=== PATIENT | male | born 1995 | race Caucasian/White ===

== ENCOUNTER 2018-06-24 01:33 | Emergency (ER) | payer SELFPAY ==
[2018-06-24 01:43] VITALS: BP 150/91; PULSE 91; RESP 17; TEMP 36.6; O2SAT 99; BMI 26.4
--- NOTE | 2018-06-24 01:48 | DI.RAD.S_ITS ---
PROCEDURE: XR CHEST 2V INDICATIONS: Shortness of breath TECHNIQUE: 2 views of the chest were acquired. COMPARISON: [facility], CHEST 2VW, 12/07/2012, 4:18 PM. FINDINGS: Surgical changes and devices: None. Lungs and pleura: No pleural effusions or pneumothorax. Lungs are clear. Mediastinum: Mediastinal contours are normal. Heart size is normal. Bones and chest wall: No suspicious bony abnormalities. Soft tissues appear unremarkable. IMPRESSION: No acute cardiopulmonary disease. Dictated by: Lisa Ambriz M.D. on 06/24/2018 at 8:56 Approved by: Lisa Ambriz M.D. on 06/24/2018 at 8:56
[2018-06-24 02:39] VITALS: BP 150/91; PULSE 72; RESP 17; TEMP 36.5; O2SAT 100
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
== END 2018-06-24 02:41 | disposition home or self-care (01) ==
PROVIDERS: Emergency Provider Emergency Medicine
DX: R07.89 Other chest pain (principal)
CPT/HCPCS: 71046; 93005; 93010; 99282; 99284

== ENCOUNTER 2019-01-24 03:58 | Emergency (ER) | payer SELFPAY ==
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
[2019-01-24 04:25] VITALS: BP 139/88; PULSE 82; RESP 14; TEMP 36.9; O2SAT 96; BMI 35.2
== END 2019-01-24 04:51 | disposition home or self-care (01) ==
PROVIDERS: Emergency Provider Emergency Medicine
DX: F41.9 Anxiety disorder, unspecified (principal); R07.9 Chest pain, unspecified
CPT/HCPCS: 93005; 99282; 99283

== ENCOUNTER 2019-02-08 23:14 | Emergency (ER) | payer SELFPAY ==
[2019-02-08 23:29] VITALS: BP 152/91; PULSE 76; RESP 15; TEMP 36.4; O2SAT 99; BMI 36.3
--- NOTE | 2019-02-09 01:33 | DI.RAD.S_ITS ---
PROCEDURE: XR CHEST 2V INDICATIONS: SOB, chest pain TECHNIQUE: 2 views of the chest were acquired. COMPARISON: [facility], CR, XR CHEST 2V, 06/24/2018, 1:24. FINDINGS: Surgical changes and devices: None. Lungs and pleura: Lungs are clear. No pleural effusions or pneumothorax. Mediastinum: Mediastinal contours are normal. Heart size is normal. Bones and chest wall: No suspicious bony abnormalities. Soft tissues appear unremarkable. IMPRESSION: Normal for age, source of current chest pain symptoms is not seen. Dictated by: Stew Fagan M.D. on 02/09/2019 at 8:22 Approved by: Stew Fagan M.D. on 02/09/2019 at 8:22
[2019-02-09 02:36] VITALS: BP 150/80; PULSE 72; RESP 15; O2SAT 99
--- NOTE | 2019-02-09 03:59 | ED_ITS ---
HPI - Extremity Problem General Chief complaint: Extremity Problem,Nontraumatic Stated complaint: pain in left arm x 2 days funny feeling in chest Time Seen by Provider: 02/09/19 00:00 Source: patient and family Mode of arrival: ambulatory Limitations: no limitations History of Present Illness HPI Narrative: 23-year-old male nonsmoker presents with his mother and a chief complaint of some vague discomfort in his left anterior chest and possibly some radiation into his arm. His symptoms are worse with use of his left arm and when standing up. He denies associated symptoms such as dizziness, weakness or lightheadedness. He has no shortness of breath, cough or recent injury. He does sleep with his left arm up and over his head when in bed. He states his pain is sharp and stabbing in nature. MD Complaint: extremity pain Onset (ago): day(s) Pain Consistency: intermittent Location: left Quality: burning and stabbing Relieving factors: rest Exacerbating factors: range of motion and palpation Associated symptoms: chest pain Related Data Previous Rx's Medication Instructions Recorded cyclobenzaprine 10 mg PO Q8HP PRN #20 tab 01/29/18 Allergies Allergy/AdvReac Type Severity Reaction Status Date / Time No Known Drug Allergies Allergy Verified 02/08/19 23:28 Review of Systems Constitutional Denies chills, Denies fever(s), Denies lethargy and Denies weakness Eyes Denies change in vision, Denies eye discharge, Denies irritation and Denies loss of vision ENT Ears, Nose, Mouth, and Throat: Denies change in voice, Denies neck pain and Denies sore throat Cardiovascular Reports chest pain, Denies irregular heart rhythm, Denies lightheadedness, Denies palpitations, Denies dyspnea, Denies dyspnea on exertion and Denies orthopnea Respiratory Denies cough, Denies dyspnea, Denies dyspnea on exertion and Denies wheezing Gastrointestinal Gastrointestinal: Denies abdominal pain, Denies change in bowel habits, Denies diarrhea, Denies nausea and Denies vomiting Genitourinary Denies hematuria, Denies flank pain, Denies urinary incontinence and Denies urinary urgency Musculoskeletal Denies neck pain and Reports radiating pain into limb Integumentary/Breasts Denies pruritus, Denies erythema, Denies rash and Denies wounds Neurologic Denies confusion, Denies loss of vision and Denies weakness Psychiatric Denies anxiety, Denies confusion, Denies depression, Denies homicidal ideation and Denies suicidal ideation Endocrine Denies palpitations Hematologic/Lymphatic Denies easy bruising Allergic/Immunologic Denies wheezing PFSH Social History Smoking Status: Never smoker Social History Smoking Status: Never smoker Exam Narrative Exam Narrative: GENERAL: 23-year-old male, resting comfortably with his mother at the bedside. He is in no obvious distress HEAD: Atraumatic. Normocephalic. No temporal or scalp tenderness. EYES: Pupils equal round and reactive. Extraocular motions intact. No scleral icterus. No injection or drainage. ENT: Nose without bleeding, purulent drainage or septal hematoma. Throat without erythema, tonsillar hypertrophy or exudate. Uvula midline. Airway patent. NECK: Trachea midline. No JVD or lymphadenopathy. Supple, nontender, no meningeal signs. CARDIOVASCULAR: Regular rate and rhythm without murmurs, gallops, or rubs. reproducible pain to palpation of left anterior chest RESPIRATORY: Clear to auscultation. Breath sounds equal bilaterally. No wheezes, rales, or rhonchi. GASTROINTESTINAL: Abdomen soft, non-tender, nondistended. No hepato- splenomegaly, or palpable masses. No guarding. EXTREMITIES: No clubbing, cyanosis, or edema. No joint tenderness, effusion, or edema noted. BACK: Nontender without deformity or crepitance. No flank tenderness. NEURO: AOx3. SKIN: No rash or erythema. Initial Vital Signs Initial Vital Signs: Vital Signs Temperature 97.5 F L 02/08/19 23:29 Pulse Rate 76 02/08/19 23:29 Respiratory Rate 15 02/08/19 23:29 Blood Pressure 152/91 H 02/08/19 23:29 Pulse Oximetry 99 02/08/19 23:29 Scores HEART Score Heart Score history: Slightly Suspicious Heart Score EKG: Normal Heart Score Age: < 45 years old Heart Score risk factors: No known risk factors Heart Score troponin: < or = to normal limit Heart Score Total: 0 Course Orders Ordered: ED Orders 02/08/19 23:32 EKG-12 Lead Stat 02/09/19 01:33 XR chest 2V Stat Vital Signs - 8 hr 02/08/19 23:29 04/10/19 02:36 Temperature 97.5 F L Pulse Rate 76 72 Respiratory Rate 15 15 Blood Pressure 152/91 H 150/80 H Pulse Oximetry 99 99 MDM - Extremity (Nontraumatic) Imaging Data Chest x-ray: Attestation: I personally reviewed and interpreted this imaging study as follows: My impression: NAP ECG Data Attestation EKG: I personally reviewed and interpreted this ECG as follows: Prior ECG tracings: not available for review Interpretation: EKG is normal sinus rhythm rate [ 62] and free of any signs of ischemia or ectopy. No ST segmental elevation or depression. No T wave inversions MDM Narrative Medical decision making narrative: Multiple etiologies for patient's symptoms considered including: [Cardiac ischemia versus gastroesophageal reflux disease versus musculoskeletal inflammation versus other] Patient's symptoms improved or duration of stay with above-stated therapies. Findings and discharge diagnosis discussed with patient/family followed by verbalization of understanding Return precautions discussed with patient/family whom verbalize understanding. Discharge Plan Departure Patient Disposition: Home Clinical Impression: Atypical chest pain Discharge Date/Time: 02/09/19 02:30 Interventions: ED Discharge Assessment Last Done: 02/09/19 02:36 Instructions: DI for Atypical Chest Pain Activity Restrictions/Additional Instructions: *You have been diagnosed with [ atypical chest pain ] *What to do: *Follow up with your primary care provider in 2-3 days, call for an appointment. Let them know you were seen in the Emergency Department and that we ask that you be seen in follow up *Return to ER if you should have any new, worsening or concerning symptoms Prescriptions: No Action cyclobenzaprine 10 MG tablet 10 mg PO Q8HP PRNQty: 20 RF: 0 Referrals: Adelia Long MD [Primary Care Provider] -
== END 2019-02-09 02:30 | disposition home or self-care (01) ==
PROVIDERS: Emergency Provider Emergency Medicine; PCP Student in an Organized Health Care Education/Training Program
DX: R07.89 Other chest pain (principal); M79.602 Pain in left arm
CPT/HCPCS: 71046; 93005; 93010; 99282; 99284

== ENCOUNTER 2019-02-16 05:21 | Emergency (ER) | payer SELFPAY ==
[2019-02-16 05:38] VITALS: BP 137/84; PULSE 72; RESP 18; TEMP 36.2; O2SAT 99; BMI 38.0
--- NOTE | 2019-02-16 05:54 | ED.FEVER ---
HPI - Fever General Chief Complaint: Fever Stated Complaint: chills, chest feels weird Time Seen by Provider: 02/16/19 05:54 Source: patient Mode of arrival: ambulatory Limitations: no limitations History of Present Illness HPI Narrative: The patient woke with chills to our prior to arrival. He has had no fevers to go along with the chills. he has eustachian tube dysfunction, he was seen in clinic history and his eustachian tubes were reported as normal. he denies sinus pressure, sore throat, neck pain or cough. He has no chest pain. he has epigastric discomfort, this is not acute. His appetite and fluid intake are good. He has no associated nausea, vomiting or diarrhea. He has no urinary complaints. He has skin rash. he has not been around others with acute illness. Other than eustachian tube dysfunction, he denies chronic illness. Related Data Previous Rx's Medication Instructions Recorded cyclobenzaprine 10 mg PO Q8HP PRN #20 tab 01/29/18 Allergies Allergy/AdvReac Type Severity Reaction Status Date / Time No Known Drug Allergies Allergy Verified 02/08/19 23:28 Review of Systems Review of Systems ROS Unobtainable: All systems reviewed & are unremarkable except as noted in HPI and below Constitutional Reports chills, Denies fever(s), Denies headache(s), Denies lethargy and Denies weakness Eyes Denies eye discharge ENT Ears, Nose, Mouth, and Throat: Denies change in voice, Denies dizziness, Denies headache(s), Denies neck pain, Denies sinus pain and Denies sore throat Cardiovascular Denies chest pain, Denies irregular heart rhythm, Denies lightheadedness, Denies palpitations, Denies dyspnea and Denies dyspnea on exertion Respiratory Denies cough, Denies dyspnea, Denies dyspnea on exertion and Denies wheezing Gastrointestinal Gastrointestinal: Reports abdominal pain (Epigastric), Denies change in bowel habits, Denies diarrhea, Denies nausea and Denies vomiting Genitourinary Denies dysuria and Denies urinary frequency Musculoskeletal Denies back pain and Denies neck pain Integumentary/Breasts Denies erythema and Denies rash Neurologic Denies dizziness, Denies headache(s) and Denies weakness Endocrine Denies palpitations Allergic/Immunologic Denies wheezing [facility] Medical History Eustachian tube dysfunction (Acute) Anxiety (Acute) Surgical History (Updated 02/16/19 @ 06:15 by Trace Bowden MD) No pertinent past surgical history (Acute) Social History (Updated 02/16/19 @ 06:16 by Trace Bowden MD) Smoking Status: Never smoker substance use type: marijuana Social History (Updated 02/16/19 @ 06:16 by Trace Bowden MD) Smoking Status: Never smoker substance use type: marijuana Exam Initial Vital Signs Initial Vital Signs: Vital Signs Temperature 97.2 F L 02/16/19 05:38 Pulse Rate 72 02/16/19 05:38 Respiratory Rate 18 02/16/19 05:38 Blood Pressure 137/84 02/16/19 05:38 Pulse Oximetry 99 02/16/19 05:38 Const General: cooperative, well developed and anxious Nutritional Appearance: well nourished Orientation: alert, awake, oriented x3 and not confused HENMT Head: normocephalic and atraumatic Ears: external ears normal and TM's normal bilaterally Nose: external nose normal Face and sinus: sinuses nontender and face symmetric Mouth: oral mucosae normal and moist mucous membranes Teeth and gingiva: dentition normal Throat: tonsils normal and uvula midline Eyes General: appearance normal, both eyes and all related structures Eyelids: eyelids normal Conjunctivae: conjunctivae normal Sclera: sclerae normal Pupils: PERRL EOM: EOM intact bilaterally Neck Neck: normal visual inspection, trachea midline, lymphadenopathy, No midline deformity and No JVD Chest Chest: normal inspection of the chest Resp Effort & Inspection: normal respiratory effort, able to speak in complete sentences, no respiratory distress and no use of accessory muscles Auscultation: clear to auscultation bilaterally, no rales, no rhonchi and no wheezes Cardio Rate: regular rate Rhythm: regular rhythm Heart Sounds: no click, no gallops, no murmurs and no rubs Pulses: normal peripheral pulses GI Inspection: non-distended Palpation: soft, no hepatosplenomegaly, No guarding, No pulsatile mass and tender (Mild epigastric) Auscultation: normal bowel sounds Back/Spine/Pelvis Back: No CVA tenderness Skin General: no rashes or lesions noted, No jaundice and No petechiae Rashes: no rashes Neuro General: alert, oriented x3, gait normal and no focal motor deficits Speech: speech normal Course Course Narrative: The patient is feeling little bit after taking 2 Tylenol, he has been drinking fluids. He has had while advised to use Tylenol as needed, rest throughout the day, and be sure he remains hydrated. Orders Ordered: Discontinued Medications Acetaminophen (Tylenol) 650 mg PO NOW ONE Stop: 02/16/19 06:02 Last Admin: 02/16/19 06:18 Dose: 650 mg Vital Signs - 8 hr 02/16/19 05:38 Temperature 97.2 F L Pulse Rate 72 Respiratory Rate 18 Blood Pressure 137/84 Pulse Oximetry 99 Discharge Plan Departure Patient Disposition: Home Clinical Impression: Acute viral syndrome Instructions: DI for Viral Syndrome Activity Restrictions/Additional Instructions: Tylenol 2 tablets every 8 hours for body aches, fever chills. Be sure you are drinking plenty of fluids and stay well hydrated. Follow-up with her doctor in 3 days if not improved. Return the ER if obviously worse. Prescriptions: No Action cyclobenzaprine 10 MG tablet 10 mg PO Q8HP PRNQty: 20 RF: 0 Referrals: Adelia Long MD [Primary Care Provider] -
[2019-02-16] MEDS: ACETAMINOPHEN 325 MG TABLET 650 MG PO (06:18)
[2019-02-16 07:26] VITALS: BP 132/68; PULSE 70; RESP 16; O2SAT 98
== END 2019-02-16 07:27 | disposition home or self-care (01) ==
PROVIDERS: Emergency Provider Emergency Medicine; PCP Student in an Organized Health Care Education/Training Program
DX: B34.9 Viral infection, unspecified (principal)
CPT/HCPCS: 93010; 99282

== ENCOUNTER 2019-02-16 10:10 | Emergency (ER) | payer SELFPAY ==
[2019-02-16 10:13] VITALS: TEMP 36.4
--- NOTE | 2019-02-16 11:27 | PC.NURSE ---
Called Financial Assistance: Asked that someone come and help Mr. Boston w/ insurance application / financial assistance. Jennifer Brian will either come down or will send someone down.
--- NOTE | 2019-02-16 12:04 | PC.NURSE ---
Financial counselor at bedside assisting patient with obtaining insurance.
--- NOTE | 2019-02-16 12:06 | ED.RECABL ---
HPI - Recheck/Abnormal Lab/Rx <Leanna Robert PA-C - Last Filed: 02/16/19 18:48> General Chief Complaint: Recheck/Abnormal Lab/Rx Stated Complaint: Pressure in his chest Time Seen by Provider: 02/16/19 12:04 Source: patient Mode of arrival: ambulatory Limitations: no limitations History of Present Illness HPI narrative: This 23-year-old male was seen here earlier this morning for chills and chest discomfort, which he describes as a sensation of feeling ?cold? in his chest initially. He states that he went home and was feeling better, then tried to eat some toast and vomited once. He states that he has felt somewhat chilled and now his chest discomfort feels ?just like heartburn? with a burning in the mid chest. He states that this started after he got back home when he was lying down. He denies any radiation of the discomfort. He denies any pain or swelling in his extremities. he denies any dyspnea or cough. He denies any ongoing nausea and has not had more vomiting. he denies any sinus symptoms, earache, sore throat or other new complaints on systems review aside from some anxiety. He states that he was having a panic attack earlier due to being concerned about his mom traveling abroad. Related Data Home Medications Medication Instructions Recorded Confirmed ibuprofen 200 mg PO PRN PRN 02/16/19 02/16/19 oxymetazoline [Nasal Decongestant 1 spray INTRANASAL PRN PRN 02/16/19 02/16/19 (oxymetazl)] pseudoephedrine HCl [Sudafed] 30 mg PO PRN PRN 02/16/19 02/16/19 Allergies Allergy/AdvReac Type Severity Reaction Status Date / Time No Known Drug Allergies Allergy Verified 02/16/19 10:16 Review of Systems <Leanna Robert PA-C - Last Filed: 02/16/19 18:48> Review of Systems ROS Unobtainable: All systems reviewed & are unremarkable except as noted in HPI and below PFSH <Leanna Robert PA-C - Last Filed: 02/16/19 18:48> Medical History (Updated 02/16/19 @ 13:28 by Leanna Robert PA-C) Anxiety (Chronic) Eustachian tube dysfunction (Chronic) Surgical History No pertinent past surgical history (Chronic) Social History (Updated 02/16/19 @ 06:16 by Trace Bowden MD) Smoking Status: Never smoker substance use type: marijuana Social History Smoking Status: Never smoker substance use type: marijuana Exam <Leanna Robert PA-C - Last Filed: 02/16/19 18:48> Narrative Exam Narrative: GENERAL APPEARANCE: Patient sitting comfortably, in no distress. Talking on cell phone after I enter the room HEAD: No sinus TTP. EYES: PERRL, EOMI. EARS: Normal auditory canals, TMS intact with normal light reflexes. ORAL CAVITY: Normal oropharynx. THROAT: Clear. NECK/THYROID: Neck supple, full range of motion, no cervical lymphadenopathy. LUNGS: Clear to auscultation bilaterally, no cough on exam. CHEST: Minimal mid sternal TTP HEART: RRR without murmur, nl S1, S2, no S3 or S4. ABDOMEN: Soft, NT, ND EXTREMITIES: No edema Initial Vital Signs Initial Vital Signs: Vital Signs Temperature 97.6 F 02/16/19 10:13 BP 130/70, pulse 64, respiration rate 18, O2 sat 100% on room air <Lila Noguera DO - Last Filed: 02/17/19 08:53> Initial Vital Signs Initial Vital Signs: Vital Signs Temperature 97.6 F 02/16/19 10:13 Course <Leanna Robert PA-C - Last Filed: 02/16/19 18:48> Additional Information: Patient refused to have blood draw. He reported symptoms resolved following GI cocktail. He states that he a lot of spicy foods. He has been having some episodes of reflux recently. Advised return if any acutely worsening symptoms and discussed risks of not having lab work. He is agreeable with plan Orders Ordered: Discontinued Medications Al Hydrox/Mg Hydrox/Simethicone 20 ml/ Lidocaine HCl 15 ml 0 ml PO NOW ONE Stop: 02/16/19 12:16 Last Admin: 02/16/19 12:52 Dose: 30 ml Vital Signs - 8 hr 02/16/19 10:13 Temperature 97.6 F <Lila Noguera DO - Last Filed: 02/17/19 08:53> Orders Ordered: Discontinued Medications Al Hydrox/Mg Hydrox/Simethicone 20 ml/ Lidocaine HCl 15 ml 0 ml PO NOW ONE Stop: 02/16/19 12:16 Last Admin: 02/16/19 12:52 Dose: 30 ml Vital Signs - 8 hr 02/16/19 10:13 Temperature 97.6 F MDM - Recheck/Abnormal Lab/Rx <Leanna Robert PA-C - Last Filed: 02/16/19 18:48> Lab Data Lab Results 02/16/19 Range/Units 12:30 Influenza A & B (PCR) Negative (Negative) <Lila Noguera DO - Last Filed: 02/17/19 08:53> Lab Data Lab Results 02/16/19 Range/Units 12:30 Influenza A & B (PCR) Negative (Negative) Discharge Plan Departure Patient Disposition: Home Clinical Impression: Atypical chest pain Acid reflux Qualifiers: Esophagitis presence: esophagitis presence not specified Qualified Code(s): K21.9 - Gastro-esophageal reflux disease without esophagitis Discharge Date/Time: 02/16/19 13:39 Interventions: ED Discharge Assessment Last Done: 02/16/19 13:38 Instructions: DI for Gastroesophageal Reflux Disease (GERD), GERD Diet Activity Restrictions/Additional Instructions: Please return as we talked about if you have any acutely worsening symptoms, or new symptoms such as severe left chest pain or acute difficulty breathing. This is especially important since you decided not to have lab work done today. Please call your PCP and schedule follow-up in the next couple of days for recheck. In the interim, please try taking [id number] Zantac 150 mg or Pepcid 20 mg once daily to help prevent her reflux, and use a liquid antacid such as Maalox or Mylanta if you have any recurrent symptoms like today. Prescriptions: No Action ibuprofen 200 mg Tablet 200 mg PO PRN PRN (Reason: pain) RF: 0 pseudoephedrine HCl [Sudafed] 30 mg Tablet 30 mg PO PRN PRN (Reason: Nasal Congestion) RF: 0 oxymetazoline [Nasal Decongestant (oxymetazl)] 0.05 % [place],Non-Aerosol 1 spray Intranasal PRN PRN (Reason: Congestion) RF: 0 Referrals: Adelia Long MD [Primary Care Provider] - <Lila Noguera DO - Last Filed: 02/17/19 08:53> Cosign ED Attending [place] Attestation: I was immediately available in the department for consultation. Documentation has been reviewed. I agree with assessment and plan.
[2019-02-16 12:52] LABS: Influenza A and B by PCR Rapid Negative (Negative)
[2019-02-16] MEDS: MAG HYDROX/ALUMINUM/SIMETH SUS 20 ML, LIDOCAINE VISCOUS 2% 15 ML PO (12:52)
--- NOTE | 2019-02-16 13:03 | PC.NURSE ---
Patient refused lab draw I can't do needles
--- NOTE | 2019-02-16 18:47 | PC.NURSE ---
Late entry: Initial vital signs @ triage: 130/72, HR 64, RR 16, sat 100% on room air. No acute distress.
== END 2019-02-16 13:39 | disposition home or self-care (01) ==
PROVIDERS: Emergency Provider Internal Medicine; PCP Student in an Organized Health Care Education/Training Program
DX: R07.89 Other chest pain (principal); K21.9 Gastro-esophageal reflux disease without esophagitis
CPT/HCPCS: 87400; 93005; 99282

== ENCOUNTER 2019-12-11 15:58 | Emergency (ER) | payer OTHER, MEDICAID, SELFPAY ==
[2019-12-11 16:07] VITALS: BP 138/84; PULSE 91; RESP 20; TEMP 36.4; O2SAT 98
[2019-12-11 16:51] LABS: Influenza A - CEPHEID Flu A NEGATIVE (NEGATIVE); Influenza B - CEPHEID Flu B NEGATIVE (NEGATIVE)
--- NOTE | 2019-12-11 17:21 | ED.URI ---
HPI - URI/Sore Throat <DEMOND Montero - Last Filed: 12/11/19 21:14> General Chief Complaint: Upper Respiratory Symptoms Stated Complaint: Flu/Cold Like Symptoms Time Seen by Provider: 12/11/19 16:42 Source: patient Mode of arrival: Ambulatory History of Present Illness HPI Narrative: 24yo male presents to the emergency department with his mother complaining of a cough for the past 3 days. Mother states that he is ?prone to having a cough that lasts a long time so his mother ?wants to get on top ?. He denies any fevers but reports rhinorrhea, nasal congestion, productive cough, and postnasal drip. He denies any shortness of breath, wheezing, chest pain, abdominal pain, nausea, vomiting, diarrhea, or other concerns. He states he has not used inhaler in the past. Related Data Home Medications Medication Instructions Recorded Confirmed ibuprofen 200 mg PO PRN PRN 02/16/19 02/16/19 oxymetazoline [Nasal Decongestant 1 spray INTRANASAL PRN PRN 02/16/19 02/16/19 (oxymetazl)] pseudoephedrine HCl [Sudafed] 30 mg PO PRN PRN 02/16/19 02/16/19 Previous Rx's Medication Instructions Recorded benzonatate [Tessalon Perles] 100 mg PO BID PRN #20 cap 12/11/19 Allergies Allergy/AdvReac Type Severity Reaction Status Date / Time No Known Drug Allergies Allergy Verified 02/16/19 10:16 Review of Systems <DEMOND Montero - Last Filed: 12/11/19 21:14> Review of Systems Narrative: REVIEW OF SYSTEMS: GENERAL: Denies fevers. HENT: No head trauma or hearing loss. EYES: No loss of vision, double vision, eye pain, irritation or discharge. CARDIOVASCULAR: No chest pain or syncope. RESPIRATORY: Complains of cough, see HPI. GASTROINTESTINAL: No nausea, vomiting, diarrhea, or constipation. MUSCULOSKELETAL: No weakness or injury. INTEGUMENTARY: No rash, lesions, or pruritus. NEURO: No memory loss, or confusion. Patient History <DEMOND Montero - Last Filed: 12/11/19 21:14> Medical History Anxiety (Chronic) Eustachian tube dysfunction (Chronic) Surgical History No pertinent past surgical history (Chronic) Social History Smoking Status: Never smoker substance use type: marijuana Smoking Status: Never smoker tobacco type: vaping alcohol intake frequency: holidays/special occasions only Substance Use Type: marijuana Exam <DEMOND Montero - Last Filed: 12/11/19 21:14> Initial Vital Signs Initial Vital Signs: Vital Signs Temperature 97.6 F 12/11/19 16:07 Pulse Rate 91 H 12/11/19 16:07 Respiratory Rate 20 12/11/19 16:07 Blood Pressure 138/84 12/11/19 16:07 Pulse Oximetry 98 12/11/19 16:07 PHYSICAL EXAMINATION: GENERAL: Well groomed, alert, and cooperative. Answers questions promptly and appropriately. Vital signs noted. HENT: Normocephalic, atraumatic. Ear canals patent. Oropharynx with slight erythema, no exudate, tonsils not present. EYES: Conjunctiva pink, sclera white, no periorbital swelling. CHEST: Normal to inspection and without deformities. CARDIOVASCULAR: S1 and S2 sounds normal. Regular rate and rhythm, no murmurs, clicks, or bruits. No pedal edema. RESPIRATORY: Normal respiratory rate, trachea midline, airway patent. No stridor, nasal flaring or accessory muscle use. Lungs are clear in all wolff without wheeze, rhonchi, or crackles. Dry cough noted throughout examination. GASTROINTESTINAL: Bowel sounds normoactive. Abdomen is soft and non-tender. No organomegaly. MUSCULOSKELETAL: Normal gait and coordination. Equal tone and mass bilaterally. EXTREMITIES: CMS intact. Moves all extremities. SKIN: Warm, dry, soft, appropriate color for ethnicity. No lesions, rashes, or wounds. NEURO: Alert and Oriented X 3. Good coordination. No ataxia, or sensory deficits, or cognitive issues. PSYCH: Appropriate affect and mood. <Brandon Amato DO - Last Filed: 12/14/19 03:19> Initial Vital Signs Initial Vital Signs: Vital Signs Temperature 97.6 F 12/11/19 16:07 Pulse Rate 91 H 12/11/19 16:07 Respiratory Rate 20 02/09/20 16:07 Blood Pressure 138/84 12/11/19 16:07 Pulse Oximetry 98 12/11/19 16:07 Course <DEMOND Montero - Last Filed: 12/11/19 21:14> Course Course Narrative: Patient was given spacer training albuterol inhaler to help with prolonged coughing. Orders Ordered: Discontinued Medications Albuterol (Ventolin Hfa Prepack) 1 box MIS SEEINSTR ONE Stop: 12/11/19 17:19 Last Admin: 12/11/19 17:29 Dose: 1 box Documented by: TATI Vital Signs Vital signs: Vital Signs - 8 hr 12/11/19 16:07 12/11/19 18:27 Temperature 97.6 F Pulse Rate 91 H 87 Respiratory Rate 20 18 Blood Pressure 138/84 133/70 Pulse Oximetry 98 97 <Brandon Amato DO - Last Filed: 12/14/19 03:19> Orders Ordered: Discontinued Medications Albuterol (Ventolin Hfa Prepack) 1 box [facility] [place] ONE Stop: 12/11/19 17:19 Last Admin: 12/11/19 17:29 Dose: 1 box Documented by: TATI Vital Signs Vital signs: Vital Signs - 8 hr 12/11/19 16:07 12/11/19 18:27 Temperature 97.6 F Pulse Rate 91 H 87 Respiratory Rate 20 18 Blood Pressure 138/84 133/70 Pulse Oximetry 98 97 MDM - URI/Sore Throat <DEMOND Montero - Last Filed: 12/11/19 21:14> Medical Records Attestation: I reviewed the patient's medical records. Lab Data Attestation: I reviewed the patient's lab results. Labs: Lab Results 12/11/19 Range/Units 16:11 Influenza A (RT-PCR) Flu a negative (NEGATIVE) Influenza B (RT-PCR) Flu b negative (NEGATIVE) MDM Narrative Medical decision making narrative: 24-year-old male presenting to the emergency department for a cough x3 days which appears viral in nature. After discussion with mother about his tendency to have a continued cough after viral infection, he was given inhaler I suspect he may have a small amount of a reactive airway component if this happens often. I do not suspect bacterial infection due to lack of crackles on lung examination, short duration since onset, lack of other systemic symptoms such as tachycardia or fevers. Patient was encouraged to follow up with his primary care provider in 1-2 weeks for further evaluation of the still having symptoms. Return precautions given. <Brandon Amato, - Last Filed: 12/14/19 03:19> Lab Data Labs: Lab Results 12/11/19 Range/Units 16:11 Influenza A (RT-PCR) Flu a negative (NEGATIVE) Influenza B (RT-PCR) Flu b negative (NEGATIVE) Discharge Plan Departure Patient Disposition: Home Clinical Impression: Bronchitis, Infection of the upper respiratory tract Discharge Date/Time: 12/11/19 18:00 Instructions: DI for Acute Bronchitis, DI for Viral Upper Respiratory Infection -- Adult Activity Restrictions/Additional Instructions: Thank you for entrusting me with your care today. As discussed, your influenza test is negative. I believe you have upper respiratory tract infection and bronchitis, good news, both are viral in do not require antibiotics. I have given you an inhaler to use for continued cough. I have also given you Tessalon Perles to help with cough. Please follow up with your primary care provider in 1-2 week for re-evaluation if your symptoms continue. Return emergency department for any new or worsening symptoms such as chest pain, high fevers that do not decreased with Tylenol or ibuprofen, uncontrollable vomiting, or other concerns. Prescriptions: New benzonatate [Tessalon Perles] 100 mg capsule 100 mg PO BID PRN (Reason: cough) Qty: 20 RF: 0 No Action ibuprofen 200 mg Tablet 200 mg PO PRN PRN (Reason: pain) RF: 0 pseudoephedrine HCl [Sudafed] 30 mg Tablet 30 mg PO PRN PRN (Reason: Nasal Congestion) RF: 0 oxymetazoline [Nasal Decongestant (oxymetazl)] 0.05 % [place],Non-Aerosol 1 spray Intranasal PRN PRN (Reason: Congestion) RF: 0 Referrals: Adelia Long MD [Primary Care Provider] -
[2019-12-11] MEDS: ALBUTEROL HFA PREPACK 1 BOX MISC (17:29)
[2019-12-11 18:27] VITALS: BP 133/70; PULSE 87; RESP 18; O2SAT 97
== END 2019-12-11 18:00 | disposition home or self-care (01) ==
PROVIDERS: Emergency Medicine; Emergency Provider Nurse Practitioner; PCP Student in an Organized Health Care Education/Training Program
DX: J40 Bronchitis, not specified as acute or chronic (principal); J06.9 Acute upper respiratory infection, unspecified
CPT/HCPCS: 87502; 99281; 99283

== ENCOUNTER 2021-10-14 21:19 | Emergency (ER) | payer OTHER, MEDICAID, SELFPAY ==
[2021-10-14 21:23] VITALS: BP 145/83; PULSE 85; RESP 20; TEMP 36.4; O2SAT 99
--- NOTE | 2021-10-14 22:58 | ED_ITS ---
HPI - Dental/Oral General Chief complaint: Dental/Oral Stated complaint: INFECTED TOOTH Time Seen by Provider: 10/14/21 22:54 Source: patient Mode of arrival: Ambulatory History of Present Illness HPI Narrative: Patient here with his mother. Complains of left lower back tooth pain for the past 2 weeks. Has had problems with this tooth in the past. Patient does smoke. No fever chills. No drooling. No trouble breathing. Patient states he is set to see a dentist in November of next year. That is when his dental insurance activate. Denies any other complaints at this time Related Data Home Medications Medication Instructions Recorded Confirmed ibuprofen 200 mg tablet 200 mg PO PRN PRN 02/16/19 02/16/19 oxymetazoline 0.05 % nasal spray 1 spray INTRANASAL PRN PRN 02/16/19 02/16/19 (Nasal Decongestant (oxymetazoline)) pseudoephedrine HCl 30 mg tablet 30 mg PO PRN PRN 02/16/19 02/16/19 (Sudafed) Previous Rx's Medication Instructions Recorded benzonatate 100 mg capsule 100 mg PO BID PRN #20 cap 12/11/19 (Tessalon Perles) ibuprofen 800 mg tablet 800 mg PO Q8H PRN #20 tab 10/14/21 penicillin V potassium 500 mg 500 mg PO QID #40 tab 10/14/21 tablet Allergies Allergy/AdvReac Type Severity Reaction Status Date / Time No Known Drug Allergies Allergy Verified 02/16/19 10:16 Review of Systems Review of Systems Narrative: GENERAL: Denies chills, fatigue, malaise, fever, sweats. HEENT: Denies sinus pain, ear pain, sore throat positive for dental pain RESPIRATORY: Denies dyspnea, cough CARDIOVASCULAR: Denies chest pain, palpitations GASTROINTESTINAL: Denies nausea, vomiting, abdominal pain : Denies dysuria, frequency, hematuria MUSCULOSKELETAL: denies muscle or bony pain SKIN: Denies rash, skin lesions NEUROLOGIC: Denies weakness, numbness ROS Unobtainable: All systems reviewed & are unremarkable except as noted in HPI and below Patient History Medical History Anxiety Eustachian tube dysfunction Surgical History No pertinent past surgical history Social History Smoking Status: Current every day smoker substance use type: marijuana Smoking Status: Current every day smoker tobacco type: vaping alcohol intake frequency: holidays/special occasions only Substance Use Type: marijuana Exam Narrative Exam Narrative: GENERAL: in no distress, not toxic not dyspneic HEAD: Normocephalic. EYES: Pupils equal round No scleral icterus. ENT: Mucous membranes moist. Significant dental caries at tooth 17. There is no palpable surrounding abscess. No cheek swelling. No palpable abscess. No tongue elevation no drooling. No trismus or malocclusion. Opens mouth very wide. NECK: Trachea midline. NEURO: AOx4. SKIN: Warm and dry PSYCH: Not anxious, is cooperative Initial Vital Signs Initial Vital Signs: Vital Signs Temperature 97.5 F L 10/14/21 21:23 Pulse Rate 85 10/14/21 21:23 Respiratory Rate 20 10/14/21 21:23 Blood Pressure 145/83 H 10/14/21 21:23 Pulse Oximetry 99 10/14/21 21:23 Course Course Course Narrative: No new issues during course of stay Orders Ordered: Discontinued Medications Ibuprofen (Ibuprofen 400 Mg Tablet) 800 mg PO NOW ONE Stop: 10/14/21 22:59 Last Admin: 10/14/21 23:04 Dose: 800 mg Documented by: SHLOMO Penicillin V Potassium (Penicillin Vk 250 Mg Tablet) 500 mg PO NOW ONE Stop: 10/14/21 22:59 Last Admin: 10/14/21 23:04 Dose: 500 mg Documented by: SHLOMO Reevaluation(s) Reevaluation #1: Mother and patient agree with treatment plan antibiotics and ibuprofen and follow up with [facility] as planned next month Time: 23:03 Vital Signs Vital signs: Vital Signs - 8 hr 10/14/21 21:23 Temperature 97.5 F L Pulse Rate 85 Respiratory Rate 20 Blood Pressure 145/83 H Pulse Oximetry 99 MDM - Dental/Oral Differential Diagnosis Differential diagnosis: Likely gingival abscess, dental caries, toothache, d ental abscess and fracture of tooth MDM Narrative Medical decision making narrative: Appropriate for discharge home. Exam reassuring. Return precautions reviewed with patient and mother. At this time no laboratory studies or imaging indicated. No palpable abscess. No external erythema of the cheek or face or loss of the nasolabial fold. Not toxic discharge. They desire discharge home Discharge Plan Departure Patient Disposition: Home Clinical Impression: Dental caries Instructions: DI for Dental Pain Activity Restrictions/Additional Instructions: See your dentist in November as planned plan your dental insurance activates. No smoking of any form. Return if worsening questions or concerns. Prescriptions: New ibuprofen 800 mg tablet 800 mg PO Q8H PRN (Reason: pain) Qty: 20 0RF penicillin V potassium 500 mg tablet 500 mg PO QID Qty: 40 0RF No Action ibuprofen 200 mg Tablet 200 mg PO PRN PRN (Reason: pain) 0RF pseudoephedrine HCl [Sudafed] 30 mg Tablet 30 mg PO PRN PRN (Reason: Nasal Congestion) 0RF oxymetazoline [Nasal Decongestant (oxymetazl)] 0.05 % [place],Non-Aerosol 1 spray Intranasal PRN PRN (Reason: Congestion) 0RF benzonatate [Tessalon Perles] 100 mg capsule 100 mg PO BID PRN (Reason: cough) Qty: 20 0RF Referrals: Adelia Long MD [Primary Care Provider] -
[2021-10-14] MEDS: IBUPROFEN 400 MG TABLET 800 MG PO (23:04)
[2021-10-14] MEDS: PENICILLIN VK 250 MG TABLET 500 MG PO (23:04)
== END 2021-10-14 23:12 | disposition home or self-care (01) ==
PROVIDERS: Emergency Provider Emergency Medicine; PCP Student in an Organized Health Care Education/Training Program
DX: K02.9 Dental caries, unspecified (principal); F17.290 Nicotine dependence, other tobacco product, uncomplicated
CPT/HCPCS: 99283

== ENCOUNTER 2022-03-01 17:00 | Emergency (ER) | payer OTHER, MEDICAID, SELFPAY ==
--- NOTE | 2022-03-01 17:08 | ED.GENADULT ---
HPI - General Adult General Stated complaint: infected tooth Time Seen by Provider: 03/01/22 17:03 Source: patient Mode of arrival: Ambulatory Limitations: no limitations History of Present Illness HPI narrative: Patient is a 26-year-old male who is here for evaluation of a infected tooth. He has had dental issues for some time and has had an infected tooth in the past. Has been on antibiotics and pain medication which seemed to help the symptoms. He was waiting for insurance to kick in before he got in to see a dentist. He now has insurance. He has an appointment to see a dentist but not for 2 weeks. He states that a couple days ago started having pain in his lower left jaw. No fevers. Does have pain in his left ear. Has been doing Tylenol and ibuprofen without any improvement. Related Data Home Medications Medication Instructions Recorded Confirmed ibuprofen 200 mg tablet 200 mg PO PRN PRN 02/16/19 02/16/19 oxymetazoline 0.05 % nasal spray 1 spray INTRANASAL PRN PRN 02/16/19 02/16/19 (Nasal Decongestant (oxymetazoline)) pseudoephedrine HCl 30 mg tablet 30 mg PO PRN PRN 02/16/19 02/16/19 (Sudafed) Previous Rx's Medication Instructions Recorded benzonatate 100 mg capsule 100 mg PO BID PRN #20 cap 12/11/19 (Tessalon Perles) ibuprofen 800 mg tablet 800 mg PO Q8H PRN #20 tab 10/14/21 penicillin V potassium 500 mg 500 mg PO QID #40 tab 10/14/21 tablet penicillin V potassium 500 mg 500 mg PO QID 7 Days #28 tab 03/01/22 tablet tramadol 50 mg tablet (Ultram) 50 mg PO Q8H PRN #12 tab 03/01/22 Allergies Allergy/AdvReac Type Severity Reaction Status Date / Time No Known Drug Allergies Allergy Verified 02/16/19 10:16 Review of Systems Constitutional Constitutional: Reports system reviewed and no additional complaints, except as documented ENT Ears, Nose, Mouth, and Throat: Reports system reviewed and no additional complaints, except as documented and Reports as per HPI Respiratory Respiratory: Reports system reviewed and no additional complaints, except as documented Hematologic/Lymphatic Hematologic/Lymphatic: Reports system reviewed and no additional complaints, except as documented Patient History Medical History Anxiety Eustachian tube dysfunction Surgical History No pertinent past surgical history Social History Smoking Status: Current every day smoker substance use type: marijuana Smoking Status: Current every day smoker tobacco type: vaping alcohol intake frequency: holidays/special occasions only Substance Use Type: marijuana Exam Const General: cooperative and comfortable HENMT Other HENMT:: Patient with fair dentition with multiple caries and broken teeth. There is no definitive abscess seen here in the emergency department. His bilateral tympanic membranes are unremarkable. Mucous membranes moist. Oropharynx is unremarkable. Neck Lymphatic: No lymphadenopathy Resp Effort & Inspection: normal respiratory effort Skin General: no rashes or lesions noted Neuro General: patient alert, patient awake and moves all extremities Extrem General: normal to inspection Medical Decision Making MDM Narrative Medical decision making narrative: Multiple caries and broken teeth. No definitive abscess requiring incision and drainage here in the ER. Was sent home on antibiotics. He is scheduled to follow up with dental in a couple weeks. Will also provide a short course of tramadol. He will continue to take Tylenol and ibuprofen. He is given return precautions. He expressed understanding and agreement. Discharge Plan Departure Patient Disposition: Home Clinical Impression: Pain, dental Instructions: DI for Dental Pain Activity Restrictions/Additional Instructions: It is important that you follow-up with the dentist is your going to need to see them for definitive treatment of the issues that your having. Continue all of your medications as directed. Take the antibiotics and pain medication as directed. You can also continue to do Tylenol and ibuprofen. Return emergency department for any new symptoms. Prescriptions: New penicillin V potassium 500 mg tablet 500 mg PO QID 7 Days Qty: 28 0RF tramadol [Ultram] 50 mg tablet 50 mg PO Q8H PRN (Reason: pain) Qty: 12 0RF No Action ibuprofen 200 mg Tablet 200 mg PO PRN PRN (Reason: pain) 0RF pseudoephedrine HCl [Sudafed] 30 mg Tablet 30 mg PO PRN PRN (Reason: Nasal Congestion) 0RF oxymetazoline [Nasal Decongestant (oxymetazl)] 0.05 % [place],Non-Aerosol 1 spray Intranasal PRN PRN (Reason: Congestion) 0RF benzonatate [Tessalon Perles] 100 mg capsule 100 mg PO BID PRN (Reason: cough) Qty: 20 0RF ibuprofen 800 mg tablet 800 mg PO Q8H PRN (Reason: pain) Qty: 20 0RF penicillin V potassium 500 mg tablet 500 mg PO QID Qty: 40 0RF Referrals: Adelia Long MD [Primary Care Provider] -
[2022-03-01 17:09] VITALS: BP 160/100; PULSE 73; RESP 20; TEMP 36.6; O2SAT 99; BMI 38.0
== END 2022-03-01 17:22 | disposition home or self-care (01) ==
PROVIDERS: Emergency Provider Emergency Medicine; PCP Student in an Organized Health Care Education/Training Program
DX: K02.9 Dental caries, unspecified (principal); S02.5XXA Fracture of tooth (traumatic), initial encounter for closed fracture; K08.89 Other specified disorders of teeth and supporting structures; X58.XXXA Exposure to other specified factors, initial encounter
CPT/HCPCS: 99281

== ENCOUNTER 2022-07-20 03:48 | Emergency (ER) | payer OTHER, MEDICAID, SELFPAY ==
[2022-07-20 03:56] VITALS: BP 142/84; PULSE 65; RESP 16; TEMP 36.2; O2SAT 99; BMI 38.0
--- NOTE | 2022-07-20 03:56 | ED.EAR ---
HPI - Ear Problem General Chief complaint: Ear Stated complaint: RT. EAR BUG BITE Time Seen by Provider: 07/20/22 03:56 History of Present Illness HPI Narrative: 26-year-old gentleman with a history of anxiety getting ready for bed tonight and noticed a small spot the midportion of the antihelix of his right year. He is worried that it may be a bug bite and comes in for reassurance. He is having no pain, fevers, rash, or adenopathy. He does not recall scratching the ear Related Data Home Medications Medication Instructions Recorded Confirmed ibuprofen 200 mg tablet 200 mg PO PRN PRN pain 02/16/19 02/16/19 oxymetazoline 0.05 % nasal spray 1 spray intranasal PRN PRN 02/16/19 02/16/19 (Nasal Decongestant Congestion (oxymetazoline)) pseudoephedrine HCl 30 mg tablet 30 mg PO PRN PRN Nasal Congestion 02/16/19 02/16/19 (Sudafed) Previous Rx's Medication Instructions Recorded benzonatate 100 mg capsule 100 mg PO BID PRN cough #20 caps 12/11/19 (Tessalon [place]) ibuprofen 800 mg tablet 800 mg PO Q8H PRN pain #20 tabs 10/14/21 penicillin V potassium 500 mg 500 mg PO QID #40 tabs 10/14/21 tablet tramadol 50 mg tablet (Ultram) 50 mg PO Q8H PRN pain #12 tabs 03/01/22 Allergies Allergy/AdvReac Type Severity Reaction Status Date / Time No Known Drug Allergies Allergy Verified 02/16/19 10:16 Review of Systems Review of Systems Narrative: Remainder of limited review of systems is otherwise unremarkable except for that included in the HPI. Patient History Medical History (Updated 07/20/22 @ 04:02 by Patricia Montague MD) Anxiety Eustachian tube dysfunction Surgical History No pertinent past surgical history Social History Smoking Status: Current every day smoker substance use type: marijuana Smoking Status: Current every day smoker tobacco type: vaping alcohol intake frequency: holidays/special occasions only Substance Use Type: marijuana Exam Initial Vital Signs Initial Vital Signs: General: Alert appropriate in no acute distress HEENT: Right ear antihelix mid position there is a 1 mm red spot that may be a very small moreno hemangioma or a minor scratch. There is no swelling, drainage or warmth to the area Respiratory: Able to speak in full sentences, no obvious respiratory distress Skin: No obvious rashes, warm and dry Neurologic: Grossly intact no obvious asymmetries or abnormalities Psych: appropriate insight and affect, cooperative Medical Decision Making [facility] Narrative Medical decision making narrative: 26-year-old gentleman concerned about a small red spot on his right ear. It is, in fact, a small red spot. Certainly nothing pathologic it may actually be a tiny moreno hemangioma but it is also possible that it is a small bite or scratch. He clearly is of minimal significance and reassurance is given. He is quite relieved and safe for home discharge Discharge Plan Departure Patient Disposition: Home Clinical Impression: Ear anomaly Prescriptions: No Action ibuprofen 200 mg Tablet 200 mg PO PRN PRN (Reason: pain) pseudoephedrine HCl [Sudafed] 30 mg Tablet 30 mg PO PRN PRN (Reason: Nasal Congestion) oxymetazoline [Nasal Decongestant (oxymetazl)] 0.05 % [place],Non-Aerosol 1 spray Intranasal PRN PRN (Reason: Congestion) benzonatate [Tessalon Perles] 100 mg capsule 100 mg PO BID PRN (Reason: cough) Qty: 20 0RF ibuprofen 800 mg tablet 800 mg PO Q8H PRN (Reason: pain) Qty: 20 0RF penicillin V potassium 500 mg tablet 500 mg PO QID Qty: 40 0RF tramadol [Ultram] 50 mg tablet 50 mg PO Q8H PRN (Reason: pain) Qty: 12 0RF Referrals: Adelia Long MD [Primary Care Provider] -
== END 2022-07-20 03:58 | disposition home or self-care (01) ==
PROVIDERS: Emergency Provider Emergency Medicine; PCP Student in an Organized Health Care Education/Training Program
DX: S00.461A Insect bite (nonvenomous) of right ear, initial encounter (principal); Q17.9 Congenital malformation of ear, unspecified
CPT/HCPCS: 99281

== ENCOUNTER 2024-08-15 18:11 | Emergency (ER) | payer OTHER, MEDICAID, SELFPAY ==
[2024-08-15 18:14] VITALS: BP 128/78; PULSE 55; RESP 18; TEMP 36.9; O2SAT 100; BMI 33.4
[2024-08-15 18:55] LABS: Add Manual Diff / Slide Review NO; Basophils Absolute Auto 0 /uL (0-100); Basophils Percent Auto 0.8 % (0-2); Eosinophils Absolute Auto 1200 /uL (0-450); Hematocrit 45.7 % (41-53); Hemoglobin 15.4 g/dL (13.5-17.5); Lymphocytes Absolute Auto 1300 /uL (1100-4500); Lymphocytes Percent Auto 25.6 % (25-40); Mean Corpuscular HGB Conc 33.7 % (30-36); Mean Corpuscular Hemoglobin 31.4 PG (26-34); Monocytes Absolute Auto 300 /uL (0-900); Monocytes Percent Auto 5.1 % (3-14); Neutrophils Absolute Auto 2200 /uL (1500-7000); Neutrophils Percent Auto 44.5 % (50-75); Platelet Count 186 X10^3/uL (150-400); Red Blood Cell Count 4.91 X10^6/uL (4.5-5.9); Red Cell Distribution Width 13.2 % (11.6-14.8); White Blood Cell Count 4.9 X10^3/uL (4.5-11.0)
[2024-08-15 19:08] LABS: Alanine Aminotransferase 77 IU/L (<50); Albumin 4.5 g/dL (3.5-5.0); Albumin Globulin Ratio 1.7 (1.0-2.8); Alkaline Phosphatase 51 U/L (38-126); Aspartate Aminotransferase 48 IU/L (17-59); BUN Creatinine Ratio 4.8 (6-22); Bilirubin Total 0.6 mg/dL (0.2-1.3); Blood Urea Nitrogen 5 mg/dL (9-20); Carbon Dioxide 28 mmol/L (22-32); Chloride 104 mmol/L (98-107); Estimated Glomerular Filt Rate > 60 mL/min (>60); Globulin 2.7 g/dL (1.7-4.1); Glucose 104 mg/dL (70-100); HEMOLYSIS 19 (0-50); Lipase 83 U/L (23-300); Sodium 140 mmol/L (137-145); Total Protein 7.2 g/dL (6.3-8.2)
[2024-08-15 20:17] VITALS: PULSE 59; O2SAT 100
[2024-08-15 20:30] VITALS: PULSE 53; O2SAT 100
[2024-08-15 21:00] VITALS: PULSE 57; O2SAT 100
--- NOTE | 2024-08-15 21:24 | ED.ABDPAIN ---
HPI - Abdominal Pain General Chief Complaint: Abdominal Pain Stated Complaint: abd pain, heartburn Time Seen by Provider: 08/15/24 21:24 Source: patient Mode of arrival: Ambulatory History of Present Illness HPI narrative: Patient 28-year-old male without significant past medical history presenting today with abdominal pain. He reports that for the last few days he has had some left-sided upper quadrant pain and some burning in his chest. He reports he has been eating a bland diet his food generally makes it worse. No significant pain. No nausea or vomiting. He only feels the burning in his chest but no other chest pain. Related Data Home Medications Medication Instructions Recorded Confirmed ibuprofen 200 mg tablet 200 mg PO PRN PRN pain 02/16/19 02/16/19 oxymetazoline 0.05 % nasal spray 1 spray intranasal PRN PRN 02/16/19 02/16/19 (Nasal Decongestant Congestion (oxymetazoline)) pseudoephedrine HCl 30 mg tablet 30 mg PO PRN PRN Nasal Congestion 02/16/19 02/16/19 (Sudafed) Previous Rx's Medication Instructions Recorded benzonatate 100 mg capsule 100 mg PO BID PRN cough #20 caps 12/11/19 (Tessalon Perles) ibuprofen 800 mg tablet 800 mg PO Q8H PRN pain #20 tabs 10/14/21 penicillin V potassium 500 mg 500 mg PO QID #40 tabs 10/14/21 tablet tramadol 50 mg tablet (Ultram) 50 mg PO Q8H PRN pain #12 tabs 03/01/22 omeprazole 20 mg capsule,delayed 20 mg PO BID #30 caps 08/15/24 release Allergies Allergy/AdvReac Type Severity Reaction Status Date / Time No Known Drug Allergies Allergy Verified 08/15/24 18:23 Patient History Medical History (Updated 08/15/24 @ 22:17 by Lila Noguera DO) Eustachian tube dysfunction Anxiety Surgical History No pertinent past surgical history Social History Smoking Status: Current every day smoker substance use type: marijuana Smoking Status: Current every day smoker tobacco type: vaping alcohol intake frequency: holidays/special occasions only Substance Use Type: marijuana Exam Initial Vital Signs Initial Vital Signs: Vital Signs Temperature 98.5 F 08/15/24 18:14 Pulse Rate 55 L 08/15/24 18:14 Respiratory Rate 18 08/15/24 18:14 Blood Pressure 128/78 08/15/24 18:14 Pulse Oximetry 100 08/15/24 18:14 Oxygen Delivery Method Room Air 08/15/24 18:14 GENERAL: Alert well-appearing 20-year-old male and in no acute distress. HEENT: Head atraumatic,EOMI, pupils reactive, face symmetric, moist mucous membranes CARDIOVASCULAR: Regular rate and rhythm without murmurs, rubs or gallops. RESPIRATORY: Breath sounds equal bilaterally, no wheezes rales or rhonchi. ABDOMEN: Soft, nontender. No tender left upper quadrant no peritoneal signs. Normoactive bowel sounds all 4 quadrants. No guarding or rebound. EXTREMITIES: Normal range of motion, no clubbing or edema. Neurovascularly intact NEUROLOGICAL: Alert and oriented x4.Normal gait and speech. Cranial nerves II through XII grossly intact. SKIN: Warm, dry, no laceration, no petechiae, no rashes or lesions. Course Orders Ordered: ED Orders 08/15/24 18:47 Complete Blood Count AUTO DIFF Stat Comprehensive Metabolic Panel Stat Lipase Stat Discontinued Medications Al Hydrox/Mg Hydrox/Simethicone 20 ml/ Lidocaine HCl 15 ml 0 ml PO NOW ONE Stop: 08/15/24 22:11 Last Admin: 08/15/24 22:26 Dose: 35 ml Documented By: TREMAYNE Ondansetron HCl (Ondansetron 4 Mg/2 Ml Inj) 4 mg IV NOW PRN PRN Reason: Nausea And Vomiting Ondansetron HCl (Ondansetron 4 Mg Odt) 4 mg PO NOW PRN PRN Reason: Nausea And Vomiting Vital Signs Vital signs: Vital Signs - 8 hr 08/15/24 20:17 08/15/24 20:30 08/15/24 21:00 Pulse Rate 59 L 53 L 57 L Blood Pressure Pulse Oximetry 100 100 100 Oxygen Delivery Method 08/15/24 21:30 08/15/24 21:44 08/15/24 21:44 Pulse Rate 55 L 55 L Blood Pressure 137/82 Pulse Oximetry 99 98 Oxygen Delivery Method Room Air MDM - Abdominal Pain Lab Data 08/15/24 18:47 08/15/24 18:47 Labs: Lab Results 08/15/24 Range/Units 18:47 WBC 4.9 (4.5-11.0) X10^3/uL RBC 4.91 (4.5-5.9) X10^6/uL Hgb 15.4 (13.5-17.5) g/dL Hct 45.7 (41-53) % MCV 93.0 (80-100) fL MCH 31.4 (26-34) PG MCHC 33.7 (30-36) % RDW 13.2 (11.6-14.8) % Plt Count 186 (150-400) X10^3/uL Neut % (Auto) 44.5 L (50-75) % Lymph % (Auto) 25.6 (25-40) % [place] % (Auto) 5.1 (3-14) % Eos % (Auto) 24.0 H (2-4) % Baso % (Auto) 0.8 (0-2) % Neut # (Auto) 2200 (5412-5631) /uL Lymph # (Auto) 1300 (5598-5642) /uL [place] # (Auto) 300 (0-900) /uL Eos # (Auto) 1200 H (0-450) /uL Baso # (Auto) 0 (0-100) /uL Sodium 140 (137-145) mmol/L Potassium 4.0 (3.4-5.1) mmol/L Chloride 104 (98-107) mmol/L Carbon Dioxide 28 (22-32) mmol/L BUN 5 L (9-20) mg/dL Creatinine 1.05 (0.66-1.25) mg/dL Estimated GFR > 60 (>60) mL/min BUN/Creatinine Ratio 4.8 L (6-22) Glucose 104 H (70-100) mg/dL Calcium 9.0 (8.4-10.2) mg/dL Total Bilirubin 0.6 (0.2-1.3) mg/dL AST 48 (17-59) IU/L ALT 77 H (<50) IU/L Alkaline Phosphatase 51 (38-126) U/L Total Protein 7.2 (6.3-8.2) g/dL Albumin 4.5 (3.5-5.0) g/dL Globulin 2.7 (1.7-4.1) g/dL Albumin/Globulin Ratio 1.7 (1.0-2.8) Lipase 83 (23-300) U/L Point of care testing: Urine Dip Bedside Urine Glucose Negative Bedside Urine Bilirubin - Negative Bedside Urine Ketone - Negative Urine Specific [place] 1.025 Bedside Urine Occult Blood - Negative Bedside Urine pH 6.0 Bedside Urine Protein - Negative Bedside Urine Urobilinogen - Negative Bedside Urine Nitrite - Negative Bedside Urine Leukocytes - Negative Esterase MDM Narrative Medical decision making narrative: Patient is a 20-year-old male who presents today with left upper quadrant pain and burning sensation in his chest. That has been ongoing for a couple of days. Blood work has been reviewed overall reassuring without leukocytosis or anemia some mild elevation in his ALT of 77 but no bilirubin and he has no right upper quadrant pain. Food generally makes his symptoms worse. I suspect that he is having some acid reflux or gastritis like symptoms. At this time does not warrant any sort of imaging. He has given a GI cocktail here in the emergency department and we discussed omeprazole with him. Discharge Plan Departure Patient Disposition: Home Clinical Impression: Gastritis Instructions: DI for Gastroesophageal Reflux Disease (GERD), DI for Gastric Ulcer Activity Restrictions/Additional Instructions: *You have been diagnosed with gastritis *What to do: You may require H pylori testing with your primary care provider. Avoid ibuprofen and other NSAIDs *Continue to take medications as directed Omeprazole 20 mg twice a day for 2 weeks Tylenol every 6 hours if needed for pain *Follow up with your primary care provider in 2-3 days or call [phone] *Return to ER if you should have any new, worsening or concerning symptoms Prescriptions: New omeprazole 20 mg capsule,delayed release(DR/EC) 20 mg PO BID Qty: 30 0RF No Action ibuprofen 200 mg Tablet 200 mg PO PRN PRN (Reason: pain) pseudoephedrine HCl [Sudafed] 30 mg Tablet 30 mg PO PRN PRN (Reason: Nasal Congestion) oxymetazoline [Nasal Decongestant (oxymetazl)] 0.05 % [place],Non-Aerosol 1 spray Intranasal PRN PRN (Reason: Congestion) benzonatate [Tessalon Perles] 100 mg capsule 100 mg PO BID PRN (Reason: cough) Qty: 20 0RF ibuprofen 800 mg tablet 800 mg PO Q8H PRN (Reason: pain) Qty: 20 0RF penicillin V potassium 500 mg tablet 500 mg PO QID Qty: 40 0RF tramadol [Ultram] 50 mg tablet 50 mg PO Q8H PRN (Reason: pain) Qty: 12 0RF Referrals: Adelia Long MD [Primary Care Provider] - Stand Alone Forms: Patient Portal/API, Work Release Note
[2024-08-15 21:30] VITALS: PULSE 55; O2SAT 99
[2024-08-15 21:44] VITALS: BP 137/82; PULSE 55; O2SAT 98
[2024-08-15] MEDS: MAG HYDROX/ALUMINUM/SIMETH SUS 20 ML, LIDOCAINE VISCOUS 2% 15 ML PO (22:26)
== END 2024-08-15 22:31 | disposition home or self-care (01) ==
PROVIDERS: Emergency Provider Emergency Medicine; PCP Student in an Organized Health Care Education/Training Program
DX: K29.70 Gastritis, unspecified, without bleeding (principal)
CPT/HCPCS: 80053; 81003; 83690; 85025; 99283

== ENCOUNTER → 2025-07-12 14:19 | Outpatient (CLI) | payer OTHER, SELFPAY ==
--- NOTE | 2025-07-12 14:20 | DI.RAD.S_ITS ---
PROCEDURE: XR CHEST 2V INDICATIONS: Chronic cough TECHNIQUE: 2 views of the chest were acquired. COMPARISON: None. FINDINGS: Surgical changes and devices: None. Lungs and pleura: Lungs are clear. No pleural effusions or pneumothorax. Mediastinum: Mediastinal contours are normal. Heart size is normal. Bones and chest wall: No suspicious bony abnormalities. Soft tissues appear unremarkable. IMPRESSION: No acute cardiopulmonary pathology. Dictated by: Kai Cunha M.D. on 07/12/2025 at 15:13 Approved by: Kai Cunha M.D. on 07/12/2025 at 15:13
== END ==
PROVIDERS: PCP Student in an Organized Health Care Education/Training Program; Referring Provider Chiropractor; Visit Provider Chiropractor
DX: R05.3 Chronic cough (principal)
CPT/HCPCS: 71046